=== PATIENT | female | born 1980 | race Caucasian/White ===

== ENCOUNTER 2017-01-08 06:29 | Day surgery (SDC) | payer OTHER ==
[~2017-01-08] VITALS: Ht 172.7 cm; Wt 119.7 kg
[~2017-01-08 06:29] MED LIST: ALIVE WOMEN'S1 EAC1 PO; ENDOCET 5-3251 EACH PO; IBUPROFEN800 MG PO; LAMICTAL25 MG PO; LEXAPRO10 MG PO; Motrin PO; NATALCARE RX1 TABLET PO; PROBIOTIC COMP1 EACH PO; PROBIOTIC1 EAC1 PO; Percocet 5/325,Endoc PO; TRAMADOL HCL50 MG PO; WOMEN'S DAILY1 EACH PO; XANAX0.5 MG PO; ZOLOFT50 MG PO
[2017-01-08 07:39] VITALS: BP 122/76
[2017-01-08] MEDS ORDERED: NORCO 5/3251 TABLET PO (10:38)
[2017-01-08 11:55] VITALS: BP 144/88
[2017-01-08 12:55] VITALS: BP 111/73
== END 2017-01-08 13:35 | disposition home or self-care (01) ==
LOC: SDC 06:29
PROC: 0WUF4JZ Supplement Abdominal Wall with Synthetic Substitute, Percutaneous Endoscopic Approach (ICD-10-PCS; principal; 2017-01-08)
DX: K43.2 Incisional hernia without obstruction or gangrene (principal); E66.9 Obesity, unspecified; Z68.41 Body mass index [BMI] 40.0-44.9, adult; Z83.3 Family history of diabetes mellitus; Z82.5 Family history of asthma and other chronic lower respiratory diseases; Z82.49 Family history of ischemic heart disease and other diseases of the circulatory system; Z83.49 Family history of other endocrine, nutritional and metabolic diseases
CPT/HCPCS: C1781; J0330; J0690; J1100; J1170; J1885; J2175; J2405; J2710; J3010